=== PATIENT | female | born 1985 | race Caucasian/White ===

== ENCOUNTER 2023-11-27 08:00 | Outpatient (CLI) | payer OTHER ==
[2023-11-27 20:31] LABS: INFLUENZA B - RESP PCR PANEL NOT DETECTED; RSV- RESP PCR PANEL NOT DETECTED; SARS-CoV-2 -RESP PCR PANEL NOT DETECTED
[2023-11-27 21:40] LABS: INFLUENZA A H1 2009- RESP PCR DETECTED
== END 2023-11-27 23:59 | disposition home or self-care (01) ==
LOC: LAB.N 08:00
PROVIDERS: ATTEND Family Medicine
DX: J06.9 Acute upper respiratory infection, unspecified (principal)
CPT/HCPCS: 87637